=== PATIENT | male | born 1950 | race Caucasian/White ===

== ENCOUNTER → 2016-08-05 | Outpatient (CLI) | payer OTHER, BC ==
[~2016-08-05] MED LIST: ASPI325T4 PO; ATOR-14 PO; IMP/50 PO; INSDGI SC; LAMO1TAB75 PO; LISI10TA PO; LITH300T2 PO; LITH600C PO; METF-384 PO; TEMA15CA4 PO
== END | disposition home or self-care (01) ==
LOC: C.LABBFT 13:24
PROVIDERS: ATTEND Psychiatry & Neurology Psychiatry
DX: F31.9 Bipolar disorder, unspecified (principal)

== ENCOUNTER → 2016-10-12 | Outpatient (CLI) | payer OTHER, BC ==
[2016-10-12 17:54] LABS: BLOOD UREA NITROGEN 17 mg/dl (7-18); BUN/CREATININE RATIO 15.3 (10-20); CALCIUM 9.2 mg/dl (8.5-10.1); CARBON DIOXIDE 26 mmol/L (21-32); CHLORIDE 101 mmol/L (98-107); CHOLESTEROL 144 mg/dl (0-200); CHOLESTEROL/HDL RATIO 5.3; GLUCOSE 197 mg/dl (70-99); HDL CHOLESTEROL 27 mg/dl; POTASSIUM 4.1 mmol/L (3.5-5.1); SODIUM 137 mmol/L (136-145); TRIGLYCERIDES 409 mg/dl (0-150)
[2016-10-13 07:25] LABS: ESTIMATED AVERAGE GLUCOSE 163 mg/dl; HA1C FLAG Normal (Normal)
== END | disposition home or self-care (01) ==
LOC: C.LABPVFM 07:39
PROVIDERS: ATTEND Family Medicine
DX: E11.9 Type 2 diabetes mellitus without complications (principal); I10 Essential (primary) hypertension

== ENCOUNTER → 2017-01-21 | Outpatient (CLI) | payer OTHER, BC ==
[2017-01-21 18:08] LABS: BASO % 0.2 %; BASO ABS # 0.02 K/uL (0-0.2); COMPLETE YES; EOS % 1.2 %; HEMATOCRIT 48.7 % (42-52); IG% 0.2 %; LYMPH % 23.2 %; LYMPH ABS # 2.06 K/uL (1.2-3.4); MEAN CELL VOLUME 90.2 fL (80-100); MEAN CORPUSCULAR HEMOGLOBIN 30.2 pg (25-34); MEAN CORPUSCULAR HGB CONC 33.5 g/dl (32-36); MEAN PLATELET VOLUME 10.4 fL (7.4-10.4); NEUT % 66.2 %; PLATELET COUNT 174 K/uL (130-400); WHITE BLOOD COUNT 8.89 K/uL (4.8-10.8)
== END | disposition home or self-care (01) ==
LOC: C.LABPVFM 11:56
PROVIDERS: ATTEND Nurse Practitioner
DX: M10.9 Gout, unspecified (principal)

== ENCOUNTER → 2017-04-11 | Outpatient (CLI) | payer OTHER, BC ==
[2017-04-11 17:59] LABS: ALT/SGPT 35 U/L (12-78); AST/SGOT 16 U/L (15-37); BLOOD UREA NITROGEN 17 mg/dl (7-18); BUN/CREATININE RATIO 15.9 (10-20); CALCIUM 9.4 mg/dl (8.5-10.1); CARBON DIOXIDE 28 mmol/L (21-32); CHLORIDE 102 mmol/L (98-107); GLUCOSE 192 mg/dl (70-99); POTASSIUM 4.4 mmol/L (3.5-5.1); SODIUM 138 mmol/L (136-145); URIC ACID 7.3 mg/dl (2.6-7.2)
[2017-04-11 18:01] LABS: ALB/GLOB RATIO 1.2 (0.9-2); ALKALINE PHOSPHATASE 101 U/L (45-117)
== END | disposition home or self-care (01) ==
LOC: C.LABPVFM 16:01
PROVIDERS: ATTEND Family Medicine
DX: M10.9 Gout, unspecified (principal); E11.9 Type 2 diabetes mellitus without complications

== ENCOUNTER → 2017-04-28 | Outpatient (CLI) | payer OTHER, BC ==
[2017-04-28 18:03] LABS: CREATININE 1.03 mg/dl (0.60-1.40)
== END | disposition home or self-care (01) ==
LOC: C.LABBFT 15:29
PROVIDERS: ATTEND Psychiatry & Neurology Psychiatry
DX: F31.76 Bipolar disorder, in full remission, most recent episode depressed (principal); Z79.899 Other long term (current) drug therapy

== ENCOUNTER → 2017-06-24 | Outpatient (CLI) | payer OTHER, BC ==
[2017-06-24 17:42] LABS: HEMATOCRIT 47.9 % (42-52); MEAN CELL VOLUME 91.1 fL (80-100); MEAN CORPUSCULAR HEMOGLOBIN 30.6 pg (25-34); MEAN CORPUSCULAR HGB CONC 33.6 g/dl (32-36); MEAN PLATELET VOLUME 10.4 fL (7.4-10.4); PLATELET COUNT 207 K/uL (130-400); RED BLOOD COUNT 5.26 M/uL (4.7-6.1); WHITE BLOOD COUNT 8.74 K/uL (4.8-10.8)
[2017-06-24 18:02] LABS: ALT/SGPT 39 U/L (12-78); AST/SGOT 21 U/L (15-37); BLOOD UREA NITROGEN 17 mg/dl (7-18); BUN/CREATININE RATIO 12.5 (10-20); CALCIUM 9.4 mg/dl (8.5-10.1); CARBON DIOXIDE 28 mmol/L (21-32); CHLORIDE 101 mmol/L (98-107); CREATININE 1.32 mg/dl (0.60-1.40); GLUCOSE 226 mg/dl (70-99); POTASSIUM 4.6 mmol/L (3.5-5.1); SODIUM 134 mmol/L (136-145); URIC ACID 6.7 mg/dl (2.6-7.2)
[2017-06-24 18:04] LABS: ALB/GLOB RATIO 1.2 (0.9-2); ALKALINE PHOSPHATASE 121 U/L (45-117)
== END | disposition home or self-care (01) ==
LOC: C.LABPVFM 13:56
PROVIDERS: ATTEND Family Medicine
DX: M10.9 Gout, unspecified (principal)

== ENCOUNTER → 2017-07-14 | Outpatient (CLI) | payer OTHER, BC ==
[~2017-07-14] MED LIST changes: +ALLO100T PO; +ASCO10003 PO; +ATEN50TA21 PO; +CIPR0.3S4 OPR; +CLON1TAB4 PO; +INSU1.2I INJ; +MISC1CAP65 PO; +MULT-1093 PO; +OMEG12006 PO; +TRAZ50TA35 PO
[2017-07-15 06:19] LABS: HEMOGLOBIN A1C 6.6 % (4.5-5.6)
== END | disposition home or self-care (01) ==
LOC: C.LABPVFM 15:25
PROVIDERS: ATTEND Family Medicine
DX: E11.9 Type 2 diabetes mellitus without complications (principal)

== ENCOUNTER 2017-08-09 14:00 | Emergency (ER) | payer OTHER, BC ==
[~2017-08-09] VITALS: Ht 193 cm; Wt 127.0 kg
[~2017-08-09 14:00] MED LIST changes: -ALLO100T PO; -ASCO10003 PO; -ATEN50TA21 PO; -CIPR0.3S4 OPR; -CLON1TAB4 PO; -INSU1.2I INJ; -MISC1CAP65 PO; -MULT-1093 PO; -OMEG12006 PO; -TRAZ50TA35 PO
[2017-08-09] MEDS ORDERED: SODIUM CHLORIDE 0.9% 1000ML 1,000 ML IV SCH (14:19)
[2017-08-09 14:31] VITALS: Ht 193 cm; Wt 127.0 kg
[2017-08-09 15:13] LABS: BASO % 0.4 %; BASO ABS # 0.03 K/uL (0-0.2); EOS % 0.6 %; EOS ABS # 0.05 K/uL (0-0.5); HEMATOCRIT 48.8 % (42-52); HEMOGLOBIN 16.7 g/dL (14.0-18.0); IG# 0.01 K/uL (0.00-0.02); MEAN CELL VOLUME 89.9 fL (80-100); MEAN CORPUSCULAR HEMOGLOBIN 30.8 pg (25-34); MEAN CORPUSCULAR HGB CONC 34.2 g/dl (32-36); MEAN PLATELET VOLUME 9.7 fL (7.4-10.4); MONO % 7.9 %; MONO ABS # 0.64 K/uL (0.11-0.59); NEUT ABS # 5.68 K/uL (1.4-6.5); PLATELET COUNT 188 K/uL (130-400); RED CELL DISTRIBUTION WIDTH CV 13.9 % (11.5-14.5); RED CELL DISTRIBUTION WIDTH SD 45.3 fL (36.4-46.3); WHITE BLOOD COUNT 8.11 K/uL (4.8-10.8)
[2017-08-09 15:26] LABS: PTT PATIENT 25.3 SECONDS (21.0-31.0)
[2017-08-09 15:31] LABS: BLOOD UREA NITROGEN 15 mg/dl (7-18); CALCIUM 9.8 mg/dl (8.5-10.1); CARBON DIOXIDE 26 mmol/L (21-32); CREATININE 1.06 mg/dl (0.60-1.40); GLUCOSE 170 mg/dl (70-99); POTASSIUM 4.4 mmol/L (3.5-5.1); SODIUM 135 mmol/L (136-145)
[2017-08-09] MEDS ORDERED: LITH300T2 PO ×2 (15:35)
[2017-08-09] MEDS ORDERED: CLON1TAB3 PO (15:35)
[2017-08-09] MEDS ORDERED: INSU1.2I INJ (15:35)
[2017-08-09] MEDS ORDERED: ATEN50TA21 PO (15:35)
[2017-08-09] MEDS ORDERED: ALLO100T PO (15:35)
[2017-08-09 15:36] VITALS: TEMP 37
[2017-08-09 15:36] LABS: CKMB 1.1 ng/ml (0.5-3.6)
[2017-08-09] MEDS ORDERED: MISC1CAP65 PO (15:53)
[2017-08-09] MEDS ORDERED: CIPR0.3S4 OPR (15:53)
[2017-08-09] MEDS ORDERED: TRAZ50TA35 PO (15:53)
[2017-08-09] MEDS ORDERED: MULT-1093 PO (15:53)
[2017-08-09] MEDS ORDERED: ASCO10003 PO (15:53)
[2017-08-09] MEDS ORDERED: OMEG12006 PO (15:53)
--- NOTE | 2017-08-09 16:05 | DIAGNOSTIC IMAGING REPORT ---
CT OF THE HEAD WITHOUT CONTRAST CLINICAL HISTORY: Stroke. Double vision. COMPARISON STUDY: No previous studies for comparison. CT DOSE: 788.63 mGycm TECHNIQUE: Helical axial images of the head were obtained without IV contrast. Automated exposure control was utilized for the study. A dose lowering technique was utilized adhering to the principles of ALARA. FINDINGS: No acute intracranial hemorrhage, midline shift or mass effect is present. Brain volume is normal for age. Basilar cisterns are patent. There are no extra-axial collections. Lake-white differentiation is maintained. There are no findings to suggest acute dural sinus thrombosis or acute territorial infarct. A few white matter hypodensities suggest small vessel disease or old lacunar infarcts. There are no significant calvarial abnormalities. Visualized portions of the sinuses and mastoid air cells are clear. IMPRESSION: No acute intracranial findings. Electronically signed by: Demarcus Donis M.D. 08/09/2017 4:04 PM Dictated Date/Time: 08/09/2017 4:01 PM
[2017-08-09] MEDS ORDERED: LORAZEPAM 0.5 MG TAB ONE (17:21)
--- NOTE | 2017-08-09 18:22 | DIAGNOSTIC IMAGING REPORT ---
MRI OF THE BRAIN WITHOUT IV CONTRAST CLINICAL HISTORY: 3rd cranial nerve palsy. COMPARISON STUDY: CT of the brain dated 08/09/2017. TECHNIQUE: MRI of the brain was performed utilizing various T1 and T2-weighted sequences in the axial, sagittal, and coronal planes. IV contrast was not administered for this examination. FINDINGS: Brain parenchyma: There is minimal periventricular microangiopathic disease. A prominent perivascular space versus chronic lacunar infarct is noted in the right basal ganglia. There is no hemorrhage or mass effect. There is no restricted diffusion to suggest acute ischemia. Lake-white matter differentiation is preserved. No extra-axial fluid collection is seen. The cerebellar tonsils are normal in configuration. Ventricles, sulci, and cisterns: Normal in configuration. Pituitary and sella: Unremarkable. Intracranial vasculature: Normal flow voids are maintained at the skull base. Orbits: The bony orbits are grossly intact. Orbital contents are normal in appearance. Sinuses and mastoids: Clear. Calvarium: Unremarkable. Cervical cord: Partially visualized cervical spinal cord is normal in morphology and signal intensity. IMPRESSION: No acute intracranial abnormality. Electronically signed by: Misha Russo M.D. 08/09/2017 6:21 PM Dictated Date/Time: 08/09/2017 6:19 PM
--- NOTE | 2017-08-09 18:25 | DIAGNOSTIC IMAGING REPORT ---
MR ANGIOGRAM OF THE BRAIN CLINICAL HISTORY: 3rd cranial nerve palsy. COMPARISON STUDY: MRI of the brain performed concurrently on 08/09/2017. TECHNIQUE: 3-D [id number] MR angiography of the intracranial circulation is performed. 3-D tumble views are created and assessed. IV contrast was not administered for this examination. FINDINGS: The [place] is developmentally complete. The internal carotid arteries are widely patent bilaterally, as are the anterior and middle cerebral arteries. The vertebrobasilar system and posterior cerebral arteries are widely patent. The vertebral arteries are codominant. There is no aneurysm, high-grade stenosis, or focal vessel cutoff seen throughout the intracranial circulation. The brain parenchyma is normal as visualized. IMPRESSION: Unremarkable MR angiogram of the brain. Electronically signed by: Misha Russo M.D. 08/09/2017 6:23 PM Dictated Date/Time: 08/09/2017 6:21 PM
[2017-08-09 20:03] VITALS: BP 127/79; PULSE 101; O2SAT 95
--- NOTE | 2017-08-09 20:57 | EMERGENCY ROOM VISIT NOTE ---
History Report prepared by Riik: Halle Wright Under the Supervision of: Dr. Arik Randle D.O. First contact with patient: 14:08 Chief Complaint: NEURO SYMPTOMS Stated Complaint: DOUBLE VISION History of Present Illness The patient is a 67 year old male who presents to the Emergency Room with complaints of constant neurological symptoms since yesterday morning. The patient woke up yesterday morning with pain in his right eye and some greenish/ yellow discharge from the eye. He saw Dr. Phan, his airport sales agent, yesterday for his symptoms. She diagnosed him with conjunctivitis and started the patient on drops. He states that the drops have alleviated some of his discomfort and drainage. Last night he did notice that his right eyelid appeared to be drooping slightly and this has persisted. The patient woke up this morning with double vision. He states that he is seeing things one on top of another. He saw Dr. Phan again who diagnosed a partial 3rd nerve paresis, pupil sparing. She discussed the case with his PCP and advised the patient to come to the ED for further evaluation. The patient states that his visual symptoms improve if he closes one eye. He is currently wearing an eye patch and that is helping. Pt denies any current headache, fevers, loss of vision, numbness, weakness, trouble drinking or swallowing, chest pain, shortness of breath, nausea, vomiting, diarrhea, pain with urination, and melena. Source of History: patient, treating provider Onset: yesterday morning Position: other (global) Quality: other (neurological) Timing: constant Modifying Factors (Relieving): other (eye patch/closing one eye) Associated Symptoms: No fevers, No headache, No chest pain, No SOB, No nausea, No vomiting, No melena, No diarrhea, No urinary symptoms, No weakness, No numbness Note: Pt reports double vision. Pt denies any loss of vision. Review of Systems See HPI for pertinent positives & negatives. A total of 10 systems reviewed and were otherwise negative. Past Medical & Surgical Medical Problems: (1) DDD (degenerative disc disease), cervical (2) Diabetes mellitus (3) Hypertension (4) Stenosis of cervical spine Family History Cancer Diabetes mellitus Hypertension Social History Smoking Status: Never Smoker Smokeless Tobacco Use: No Alcohol Use: occasionally Drug Use: none Marital Status: Housing Status: lives with family Occupation Status: employed Current/Historical Medications Scheduled Allopurinol (Zyloprim), 1 TAB PO DAILY Ascorbic Acid (Vitamin C), 1 TAB PO DAILY Aspirin (Aspirin), 325 MG PO BID Atenolol & Chlorthalidone (Tenoretic 50MG/25MG), 1 TAB PO DAILY Atorvastatin (Lipitor), 10 MG PO HS Ciprofloxacin Ophth Soln (Ciprofloxacin Ophth Soln), 2 DROPS OPR QID Clonazepam (Klonopin), 1 MG PO QPM Imipramine (Tofranil), 150 MG PO QAM Insulin Glargine (Toujeo Solostar), 70 UNITS INJ DAILY Lisinopril (Prinivil), 10 MG PO DAILY Catano Carbonate (Catano Carbonate), 600 MG PO QAM Catano Carbonate ([place] Carbonate), 300 MG PO QPM Metformin Hcl (Glucophage), 1,000 MG PO BID Misc Natural Products (Urinozinc), 2 TABS PO QAM Multiple Vitamins W/ Minerals (Centrum Silver 50+Men), 1 TAB PO DAILY Chandler-3 Fatty Acids (Chandler 3), 1,200 MG PO DAILY Trazodone Hcl (Trazodone), 50 MG PO QPM Allergies Coded Allergies: Hydromorphone (Verified Allergy, Unknown, PT. UNAWARE OF BEING ALLERGIC TO THIS MEDICATION, 08/09/17) Penicillins (Verified Allergy, Unknown, RASH, 08/09/17) Physical Exam Vital Signs Date Time Temp Pulse Resp B/P (MAP) Pulse Ox O2 Delivery O2 Flow Rate FiO2 08/09/17 20:03 101 18 127/79 95 Room Air 08/09/17 19:07 80 18 136/79 98 Room Air 08/09/17 17:02 100 20 171/83 95 Room Air 08/09/17 15:36 37.0 87 20 127/81 94 Room Air 08/09/17 14:52 Room Air Physical Exam GENERAL: Sitting up in bed, alert, well appearing, well nourished, no distress, non-toxic EYE EXAM: Normal conjunctiva, right eye slightly deviated to the right and inferiorly with ptosis of eyelid, PERRL, extraocular muscles are otherwise intact although has a slight deficit with medial gaze of right eye. OROPHARYNX: no exudate, no erythema, lips, buccal mucosa, and tongue normal and mucous membranes are moist NECK: supple, no nuchal rigidity, no adenopathy, non-tender LUNGS: Clear to auscultation. Normal chest wall mechanics HEART: no murmurs, S1 normal and S2 normal ABDOMEN: abdomen soft, non-tender, normo-active bowel sounds, no masses, no rebound or guarding. BACK: Back is symmetrical on inspection and there is no deformity, no midline tenderness, no CVA tenderness. SKIN: no rashes and no bruising UPPER EXTREMITIES: upper extremities are grossly normal. LOWER EXTREMITIES: No pitting edema. NEURO EXAM: Normal sensorium, cranial nerves 2, 4-12 are intact, normal speech, no gross weakness of arms, no weakness of legs. No drift. Finger to nose intact, only possible with one eye closed. Gross sensation intact. Medical Decision & Procedures ER Provider Diagnostic Interpretation: Radiology results as stated below per my review and the radiologist's interpretation: CT OF THE HEAD WITHOUT CONTRAST CLINICAL HISTORY: Stroke. Double vision. COMPARISON STUDY: No previous studies for comparison. CT DOSE: 788.63 mGycm TECHNIQUE: Helical axial images of the head were obtained without IV contrast. Automated exposure control was utilized for the study. A dose lowering technique was utilized adhering to the principles of ALARA. FINDINGS: No acute intracranial hemorrhage, midline shift or mass effect is present. Brain volume is normal for age. Basilar cisterns are patent. There are no extra-axial collections. Lake-white differentiation is maintained. There are no findings to suggest acute dural sinus thrombosis or acute territorial infarct. A few white matter hypodensities suggest small vessel disease or old lacunar infarcts. There are no significant calvarial abnormalities. Visualized portions of the sinuses and mastoid air cells are clear. IMPRESSION: No acute intracranial findings. Electronically signed by: Demarcus Donis M.D. 08/09/2017 4:04 PM Dictated Date/Time: 08/09/2017 4:01 PM MR ANGIOGRAM OF THE BRAIN CLINICAL HISTORY: 3rd cranial nerve palsy. COMPARISON STUDY: MRI of the brain performed concurrently on 08/09/2017. TECHNIQUE: 3-D [id number] MR angiography of the intracranial circulation is performed. 3-D tumble views are created and assessed. IV contrast was not administered for this examination. FINDINGS: The [place] is developmentally complete. The internal carotid arteries are widely patent bilaterally, as are the anterior and middle cerebral arteries. The vertebrobasilar system and posterior cerebral arteries are widely patent. The vertebral arteries are codominant. There is no aneurysm, high-grade stenosis, or focal vessel cutoff seen throughout the intracranial circulation. The brain parenchyma is normal as visualized. IMPRESSION: Unremarkable MR angiogram of the brain. Electronically signed by: Misha Russo M.D. 08/09/2017 6:23 PM Dictated Date/Time: 08/09/2017 6:21 PM MRI OF THE BRAIN WITHOUT IV CONTRAST CLINICAL HISTORY: 3rd cranial nerve palsy. COMPARISON STUDY: CT of the brain dated 08/09/2017. TECHNIQUE: MRI of the brain was performed utilizing various T1 and T2-weighted sequences in the axial, sagittal, and coronal planes. IV contrast was not administered for this examination. FINDINGS: Brain parenchyma: There is minimal periventricular microangiopathic disease. A prominent perivascular space versus chronic lacunar infarct is noted in the right basal ganglia. There is no hemorrhage or mass effect. There is no restricted diffusion to suggest acute ischemia. Lake-white matter differentiation is preserved. No extra-axial fluid collection is seen. The cerebellar tonsils are normal in configuration. Ventricles, sulci, and cisterns: Normal in configuration. Pituitary and sella: Unremarkable. Intracranial vasculature: Normal flow voids are maintained at the skull base. Orbits: The bony orbits are grossly intact. Orbital contents are normal in appearance. Sinuses and mastoids: Clear. Calvarium: Unremarkable. Cervical cord: Partially visualized cervical spinal cord is normal in morphology and signal intensity. IMPRESSION: No acute intracranial abnormality. Electronically signed by: Misha Russo M.D. 08/09/2017 6:21 PM Dictated Date/Time: 08/09/2017 6:19 PM Laboratory Results 08/09/17 14:55 Red Blood Count 5.43, Mean Corpuscular Volume 89.9, Mean Corpuscular Hemoglobin 30.8, Mean Corpuscular Hemoglobin Concent 34.2, Mean Platelet Volume 9.7, Neutrophils (%) (Auto) 70.0, Lymphocytes (%) (Auto) 21.0, Monocytes (%) (Auto) 7.9, Eosinophils (%) (Auto) 0.6, Basophils (%) (Auto) 0.4, Neutrophils # (Auto) 5.68, Lymphocytes # (Auto) 1.70, Monocytes # (Auto) 0.64, Eosinophils # (Auto) 0.05, Basophils # (Auto) 0.03 08/09/17 14:55 Test 08/09/17 14:31 08/09/17 14:55 Bedside Prothrombin Time INR 1.0 (0.9-1.1) White Blood Count 8.11 K/uL (4.8-10.8) Red Blood Count 5.43 M/uL (4.7-6.1) Hemoglobin 16.7 g/dL (14.0-18.0) Hematocrit 48.8 % (42-52) Mean Corpuscular Volume 89.9 fL (80-100) Mean Corpuscular Hemoglobin 30.8 pg (25-34) Mean Corpuscular Hemoglobin Concent 34.2 g/dl (32-36) Platelet Count 188 K/uL (130-400) Mean Platelet Volume 9.7 fL (7.4-10.4) Neutrophils (%) (Auto) 70.0 % Lymphocytes (%) (Auto) 21.0 % Monocytes (%) (Auto) 7.9 % Eosinophils (%) (Auto) 0.6 % Basophils (%) (Auto) 0.4 % Neutrophils # (Auto) 5.68 K/uL (1.4-6.5) Lymphocytes # (Auto) 1.70 K/uL (1.2-3.4) Monocytes # (Auto) 0.64 K/uL (0.11-0.59) Eosinophils # (Auto) 0.05 K/uL (0-0.5) Basophils # (Auto) 0.03 K/uL (0-0.2) RDW Standard Deviation 45.3 fL (36.4-46.3) RDW Coefficient of Variation 13.9 % (11.5-14.5) Immature Granulocyte % (Auto) 0.1 % Immature Granulocyte # (Auto) 0.01 K/uL (0.00-0.02) Prothrombin Time 10.3 SECONDS (9.0-12.0) Prothromb Time International Ratio 1.0 (0.9-1.1) Activated Partial Thromboplast Time 25.3 SECONDS (21.0-31.0) Partial Thromboplastin Ratio 1.0 Anion Gap 8.0 mmol/L (3-11) Est Creatinine Clear Calc Drug Dose 99.7 ml/min Estimated GFR () 84.3 Estimated GFR (Non- 72.8 BUN/Creatinine Ratio 14.0 (10-20) Calcium Level 9.8 mg/dl (8.5-10.1) Magnesium Level 2.0 mg/dl (1.8-2.4) Total Creatine Kinase 102 U/L (39-308) Creatine Kinase MB 1.1 ng/ml (0.5-3.6) Creatine Kinase MB Ratio 1.1 (0-3.0) Troponin I < 0.015 ng/ml (0-0.045) Laboratory results per my review. Medications Administered Medications (Trade) Dose Ordered Sig/Hitesh Route Start Time Stop Time Status Last Admin Dose Admin Sodium Chloride 1,000 ml @ 50 mls/hr Q20H IV 08/09/17 14:19 09/08/17 14:18 08/09/17 14:15 50 MLS/HR Lorazepam (Ativan Tab) 0.5 mg STK-MED ONCE .ROUTE 08/09/17 17:21 08/09/17 17:22 DC 08/09/17 17:22 0.5 MG ECG Indication: other Rate (beats per minute): 92 Rhythm: normal sinus Findings: no ectopy, other (normal axis) Change: Patient's electrocardiogram interpreted by me. ED Course ED COURSE: Vital signs were reviewed and showed normal vitals The patients medical record was reviewed The above diagnostic studies were performed and reviewed. ED treatments and interventions as stated above. 1408: The patient was evaluated in room B9. A complete history and physical examination was performed. 1419: NSS 1000 ml @ 50 mls/hr IV 1508: I spoke with Dr. Phan, the patient's airport sales agent. We discussed the case. She states that his slit lamp exam was normal and his intraocular pressures were WNL. 1648: I discussed the patient's case with Dr. Bartholomew of neurology. She recommends MRI of brain and MRA. 1651: I updated the patient and he is in agreement with the treatment plan. 1855: I discussed the patient's results with Dr. Bartholomew and she will follow- up with the patient as an outpatient. 1909: Upon reevaluation, the patient is feeling better and resting comfortably. I discussed my findings with the patient and he understands and agrees with the treatment plan. Based on the patients age, coexisting illnesses, exam and lab findings the decision to treat as an outpatient was made. The patient remained stable while under my care. The patient appeared well at the time of discharge. Medical Decision Differential Diagnosis includes but is not limited to ischemic Stroke, hemorrhagic stroke, bells palsy, mass, neoplasm, migraine headache, seizure, subarachnoid hemorrhage, TIA, and transient global amnesia. Patient is a 67-year-old male that was referred in by his eye doctor for a third cranial nerve palsy. He was evaluated yesterday and had conjunctivitis. He did complete eye exam done again today and was referred in for the third nerve palsy. I did not perform evaluation patient has reported by . his intraocular pressures and slit lamp was completely benign. Discussed with neurology following a negative CT head and performed an MRI and MRA of the brain. This was negative. Rediscussed with them they agreed with having patient follow up with her PCP, ophthalmology and them as an outpatient. Do favor this is likely related to a diabetic neuropathy. Patient has no other complaint at this time. He is otherwise completely neurologically intact. He was discharged follow-up as an outpatient. Discussed with Pt concerning signs and symptoms to watch out for. Pt was instructed to follow up with their PCP and discussed with the patient their option to return to the ED at anytime for persistent or worsening symptoms. The appropriate anticipatory guidance and out- patient management, including indications for return to the emergency department , were explained at length to the patient and understood. Medication Reconcilliation Current Medication List: was personally reviewed by me Blood Pressure Screening Patient's blood pressure: Normal blood pressure Consults Time Called: 1504 Consulting Physician: Dr. Phan Returned Call: [address] Phan, the patient's airport sales agent. We discussed the case. She states that his slit lamp exam was normal and his intraocular pressures were WNL. Additional Consults: Time Called: 1644 Consulted Physician: Dr. Bartholomew Returned Call: 1648 Additional Comments: I discussed the patient's case with Dr. Bartholomew of neurology. She recommends MRI of brain and MRA. Time Called: 185 Consulted Physician: Dr. Bartholomew Returned Call: [phone] Additional Comments: I discussed the patient's results with Dr. Bartholomew and she will follow-up with the patient as an outpatient. Impression Primary Impression: Cranial nerve III palsy, partial Additional Impression: Diabetes mellitus Scribe Attestation The scribe's documentation has been prepared under my direction and personally reviewed by me in its entirety. I confirm that the note above accurately reflects all work, treatment, procedures, and medical decision making performed by me. Departure Information Dispostion Home / Self-Care Referrals Arlyn Hall M.D. Schaefer, Kathleen A., M.D. Forms HOME CARE DOCUMENTATION FORM, IMPORTANT VISIT INFORMATION, WORK / SCHOOL INSTRUCTIONS Patient Instructions ED Double Vision, My [facility] Additional Instructions Please follow up with your primary care doctor with in the next 24 hours. Any worsening of your symptoms, please return to the ED immediately. This includes any fevers greater than 100.4, worsening pain, chest pain, shortness breath, persistent nausea, vomiting, unable to eat or drink, weakness or numbness in your arms or legs, facial droop, or any other concerning signs or symptoms from your standpoint. Please note drive until you're cleared by your eye doctor. Please follow up with neurology as soon as possible. Problem Qualifiers Primary Impression: Cranial nerve III palsy, partial Laterality: right Qualified Codes: H49.01 - Third [oculomotor] nerve palsy, right eye Additional Impression: Diabetes mellitus Diabetes mellitus type: other specified (including BRIANA)
== END 2017-08-09 20:05 | disposition home or self-care (01) ==
LOC: C.EDB 14:02
DX: H49.01 Third [oculomotor] nerve palsy, right eye (principal); E11.9 Type 2 diabetes mellitus without complications; I10 Essential (primary) hypertension; Z79.82 Long term (current) use of aspirin; Z79.4 Long term (current) use of insulin; Z79.84 Long term (current) use of oral hypoglycemic drugs; Z88.0 Allergy status to penicillin; Z88.6 Allergy status to analgesic agent; Z83.3 Family history of diabetes mellitus; Z82.49 Family history of ischemic heart disease and other diseases of the circulatory system

== ENCOUNTER → 2017-09-06 | Outpatient (CLI) | payer OTHER, BC ==
[~2017-09-06] MED LIST changes: +ALLO100T PO; +ASCO10003 PO; +ATEN50TA21 PO; +CIPR0.3S4 OPR; +CLON1TAB3 PO; -INSDGI SC; +INSU1.2I INJ; -LAMO1TAB75 PO; -LITH600C PO; +MISC1CAP65 PO; +MULT-1093 PO; +OMEG12006 PO; -TEMA15CA4 PO; +TRAZ50TA35 PO
[2017-09-06 13:20] LABS: CREATININE 1.19 mg/dl (0.60-1.40)
== END | disposition home or self-care (01) ==
LOC: C.LABBFT 07:25
PROVIDERS: ATTEND Psychiatry & Neurology Psychiatry
DX: F31.76 Bipolar disorder, in full remission, most recent episode depressed (principal)

== ENCOUNTER → 2017-09-09 | Outpatient (CLI) | payer OTHER, BC | END | disposition home or self-care (01) | LOC: C.LABBFT 07:15 | PROVIDERS: ATTEND Psychiatry & Neurology Psychiatry | DX: F31.76 Bipolar disorder, in full remission, most recent episode depressed (principal); Z79.899 Other long term (current) drug therapy ==

== ENCOUNTER → 2017-10-07 | Outpatient (CLI) | payer OTHER, BC ==
--- NOTE | 2017-10-07 09:15 | DIAGNOSTIC IMAGING REPORT ---
CHEST 2 VIEWS ROUTINE CLINICAL HISTORY: ACUTE BRONCHITIS, UNSPECIFIED ORGANISM COMPARISON STUDY: 05/30/2013 FINDINGS: The cardiac and mediastinal contours are normal. There is no evidence of focal pulmonary consolidation. There is no evidence of failure. No pleural effusions are visualized.[ There is an old distal left clavicular fracture. IMPRESSION: No active disease in the chest. Electronically signed by: Riley Faustin M.D. 10/07/2017 9:14 AM Dictated Date/Time: 10/07/2017 9:13 AM
== END | disposition home or self-care (01) ==
LOC: C.RADPV 08:54
PROVIDERS: ATTEND Family Medicine
DX: J20.9 Acute bronchitis, unspecified (principal)

== ENCOUNTER → 2017-11-10 | Outpatient (CLI) | payer OTHER, BC ==
[2017-11-10 13:36] LABS: HEMOGLOBIN A1C 5.7 % (4.5-5.6)
[2017-11-10 13:47] LABS: ALBUMIN 4.4 gm/dl (3.4-5.0); ALT/SGPT 42 U/L (12-78); AST/SGOT 22 U/L (15-37); BLOOD UREA NITROGEN 17 mg/dl (7-18); CALCIUM 9.5 mg/dl (8.5-10.1); CARBON DIOXIDE 26 mmol/L (21-32); CHOLESTEROL 85 mg/dl (0-200); GLUCOSE 112 mg/dl (70-99); POTASSIUM 4.5 mmol/L (3.5-5.1); SODIUM 135 mmol/L (136-145)
[2017-11-10 13:50] LABS: ALKALINE PHOSPHATASE 95 U/L (45-117); LDL CHOLESTEROL CALCULATED 31 mg/dl; TOTAL PROTEIN 7.4 gm/dl (6.4-8.2)
[2017-11-10 13:58] LABS: CREATININE RANDOM URINE 80.5 mg/dl
== END | disposition home or self-care (01) ==
LOC: C.LABPVFM 10:36
PROVIDERS: ATTEND Family Medicine
DX: Z00.00 Encounter for general adult medical examination without abnormal findings (principal); E11.9 Type 2 diabetes mellitus without complications; E78.5 Hyperlipidemia, unspecified

== ENCOUNTER → 2018-02-24 | Outpatient (CLI) | payer OTHER, BC ==
[~2018-02-24] MED LIST changes: -CLON1TAB3 PO; +CLON1TAB4 PO
[2018-02-24 12:51] LABS: CREATININE 1.11 mg/dl (0.60-1.40)
== END | disposition home or self-care (01) ==
LOC: C.LABBFT 09:20
PROVIDERS: ATTEND Psychiatry & Neurology Psychiatry
DX: F31.76 Bipolar disorder, in full remission, most recent episode depressed (principal)

== ENCOUNTER 2020-09-30 04:45 | Inpatient (IN) ==
[2020-09-30] MEDS ORDERED: SODIUM CHLORIDE 0.9% 1000ML 1,000 ML IV ONE ×3 (04:59→05:40)
[2020-09-30] MEDS ORDERED: ACETAMINOPHEN 1,000 MG/100 ML VIAL IV STA (04:59)
--- NOTE | 2020-09-30 05:06 | Emergency Department Note ---
Impression & Plan Sepsis, Acute UTI (urinary tract infection), Lactic acidosis ED Provider Note Name: STEFAN BROOKS Age: 70 Sex: M Arrives Via: Family Vehicle Informant: Patient, ED Provider: Mahamed Acosta MD Chief Complaint: Weakness Impression: Sepsis Acute UTI Lactic Acidosis Medical Decision Makin yr old male with history DMII, HTN, DDD, HLD arrives due to weakness and fevers at home. Ill appearing, tachycardic and mildly hypoxic. Sepsis work up initiated on arrival and blood cultures send. 30ml/kg bolus given, empiric cefepime/vanco, and patient improving rapidly. HR coming down some though still a bit tachy. Abdomen soft, lungs clear and cxr unremarkable. He does have a bit of hypoxia which may be septic related but without respiratory symptoms seems unlikely pneumonia given the Urine is consistent with infection. Lactate elevated consistent with sepsis. Patient tolerating large IV fluids well. He is thinking more clearly and notes he is much improved appearing. He did have fall without injury prior to arrival and without head injury. As no headache, neuro deficits and no blood thinner use I do not feel that neuro imaging indicated at this time. Hospitalist consulted for further management. Prior Medical Record and Triage/Nursing Notes reviewed by Me Additional history obtained from chart Differentials:Infection, dehydration, metabolic abnormality, hypo/hyperglycemia, electrolyte disturbance, anemia, hypoxia, cardiac sources, intracerebral event, toxicologic, neurologic, as well as other pathologies. Vital Signs: reviewed and remarkable for tachy, hypoxia Interventions: saline lock, nss bolus 30ml/kg IV, tylenol iv, cefepime iv, vanco iv Labs:Reviewed and remarkable for elevated lactate, wbc elevation Imaging:X ray results are stated below per my interpretation: Chest: 1 view: No infiltrate, no effusion, normal cardiac border. EKG:Per My Interpretation: Indication Sepsis: Sinus tach 131 bpm, qtc 428. No Ectopy. No Ischemia. No previous for comparison. Cardiac/Tele Monitoring: Cardiac Monitoring: An Order was placed for continuous cardiac monitoring. The monitor shows a rate of 130 with a sinus tachy rhythm. Consults: [place] Hospitalist Plan: Disposition:Hospitalization. Referred to: PCP Condition: Fair History of Present Illness:70 yr old male arrives for evaluation of weakness. Patient notes increasing fatigue, exhaustion and weakness throughout day yesterday. Associated with low grade fevers, mild nausea, lack of appetite and increasing urinary frequency. Notes feeling like he has to urinate constantly for the last few hours. noted he was so weak he collapsed slowly to floor by nightstand at which time she brought him to ED. He did not hit head nor injury himself during this fall. She notes his blood sugars were in the 190s this evening which is high for him. He used Tylenol 6 hours ago with mild improvement in symptoms. He notes exertion makes worse and laying in bed makes better. Current with mild headache though denies neuro deficits. He has no abdominal pain, back pain, leg swelling, rashes, chest pain, shob, syncope, nor other symptoms. No history of sepsis. Received both Covid Vaccinations > 2 weeks ago now. ROS: See above HPI for pertinent positives & negatives. A total of 10 systems reviewed and were otherwise negative. Past Medical History:DMII, HTN, DDD, HLD Past Surgical History:Cervical surgery Family History:See Below Social History:Lives with , semi-retired, no etoh/tobacco/drugs Home Medications:See Below Allergies:Dilaudid, PNC, Amox, Oxycodone Vitals:Blood Pressure: 157/80, Pulse 137, RR 22, T 37.4C, O2 92% on RA Physical Exam: GENERAL: Patient is ill appearing and in moderate distress. Dehydrated appearing and unwell. EYES: No scleral icterus, unremarkable pupils. ENT: Mucous membranes dry, no nasal congestion. NECK: No masses appreciated, nomeningismus, trachea is midline. RESPIRATORY: No dyspnea. Clear to auscultation and equal bilaterally. No wheeze, no rhonchi. CARDIOVASCULAR: Tachy.No murmurs, rubs, gallops appreciated. GASTROINTESTINAL: Abdomen soft, non-tender, no peritonitis.Bowel sounds positive.No masses appreciated. BACK: No midline tenderness, no CVA tenderness EXTREMITIES: Normal motion all extremities, no cyanosis, no edema. NEUROLOGIC: Tremulous, Alert and oriented, no acute motor or sensory deficits, no focal weakness, cranial nerves grossly intact. SKIN: No rash, no jaundice, no diaphoresis. PSYCH: Appropriate GCS: 15 ED Course: Times/Reassessments: Multiple evaluations, patient vastly improved with fluid resus, comfortable, breathing in no distress. Critical Care: I have personally spent 30 minutes of critical care time in the direct management of this patient. Acute Sepsis with lactic acidosis secondary to UTI. This was a life/limb threatening event. This 30 minutes is in excess of all separately billable procedures. Mahamed Acosta MD Past Med/Surg History Medical History (Updated 09/30/20 @ 07:19 by Evgeny Vick MD) DDD (degenerative disc disease), cervical (06/05/13) Diabetes mellitus Hyperlipidemia Hypertension Stenosis of cervical spine (06/05/13) Surgical History Hx of neck surgery Family History Other Breast cancer Colorectal cancer Denies family history of Ovarian cancer Prostate cancer Myocardial infarction Social History Smoking Status: Never smoker Hx Alcohol Use: No Hx Substance Use: No Preferred Language: Iraqi marital status: Current Living Situation: Spouse current occupational status: employed Feels Safe at Home: Yes caffeine: No Dental Care, Regularly: Yes Physical Activity Frequency: 5-6 Times per Week Seatbelt Use: always Sunscreen Use: No Allergies Allergies Allergy/AdvReac Type Severity Reaction Status Date / Time hydromorphone Allergy Unknown PT. Verified 05/30/20 12:53 UNAWARE OF BEING ALLERGIC TO THIS MEDICATION Penicillins Allergy Unknown RASH Verified 05/30/20 12:53 amoxicillin Allergy Verified 05/30/20 12:53 oxycodone Allergy Verified 05/30/20 12:53 Home Meds Home Medications Medication Instructions Recorded Confirmed lancets 30 gauge #25 ea 04/02/19 05/30/20 multivitamin 1 tab PO DAILY 04/02/19 09/30/20 aspirin 325 mg tablet,delayed 325 mg PO BID tab 04/03/19 09/30/20 release omega-3 acid ethyl esters 1 gram 1 cap PO BID cap 04/03/19 09/30/20 capsule trazodone 50 mg tablet 75 mg PO HS tab 04/04/19 09/30/20 clonazepam 1.5 mg PO HS PRN 09/30/20 09/30/20 lithium carbonate See Rx Instructions .ROUTE .COMPLEX 09/30/20 09/30/20 Previous Rx's Medication Instructions Recorded allopurinol 100 mg tablet 100 mg PO DAILY #90 tab 12/04/19 atenolol 50 mg-chlorthalidone 25 1 tab PO DAILY #90 tab 12/04/19 mg tablet atorvastatin 10 mg tablet 10 mg PO DAILY #90 tab 12/04/19 blood sugar diagnostic #10 ea 12/04/19 lancets 33 gauge #100 ea 12/04/19 ipratropium bromide 21 mcg (0.03 2 spray INTNAS TID #30 ml 02/26/20 %) nasal spray insulin glargine 100 unit/mL (3 48 unit SUBCUT DAILY #3 ml 02/28/20 mL) subcutaneous pen metformin 1,000 mg tablet 1,000 mg PO BID #180 tab 03/20/20 sildenafil 50 mg tablet 50 mg PO DAILY PRN #30 tab 04/18/20 lisinopril 10 mg tablet 10 mg PO DAILY #90 tab 06/26/20 pen needle, diabetic 31 gauge x #30 ea 07/30/20 5" liraglutide 0.6 mg/0.1 mL (18 mg/3 See Rx Instructions .ROUTE 09/18/20 mL) subcutaneous pen injector .COMPLEX #9 syringe Results & Data (ED) Vital Signs Vital Signs - 24 hr 09/30/20 04:46 09/30/20 05:20 09/30/20 05:27 Temperature 37.4 C Temperature Source Oral Pulse Rate 137 H 123 H 117 H Pulse Rate from SpO2 Sensor 123 H 117 H Respiratory Rate 22 22 24 Respiratory Effort / Characteristics Non-Labored Blood Pressure 157/80 H 178/141 H 137/67 Blood Pressure Mean 105 153 90 Blood Pressure Position Sitting Pulse Oximetry 99 96 93 Oxygen Delivery Method Room Air Room Air Sepsis Recent Fever Within 48 Hours Yes Sepsis New/Unexplained Change in Mental Status N/A Sepsis Action Taken by Nursing No Action Required 09/30/20 05:30 09/30/20 05:45 09/30/20 06:00 Temperature Temperature Source Pulse Rate 118 H 117 H 113 H Pulse Rate from SpO2 Sensor 118 H 117 H 113 H Respiratory Rate 15 24 25 H Respiratory Effort / Characteristics Blood Pressure 139/68 136/70 122/61 Blood Pressure Mean 91 92 81 Blood Pressure Position Pulse Oximetry 99 90 92 Oxygen Delivery Method Sepsis Recent Fever Within 48 Hours Sepsis New/Unexplained Change in Mental Status Sepsis Action Taken by Nursing 09/30/20 06:15 09/30/20 06:30 09/30/20 06:45 Temperature Temperature Source Pulse Rate 112 H 111 H 108 H Pulse Rate from SpO2 Sensor 112 H 111 H 108 H Respiratory Rate 24 27 H 24 Respiratory Effort / Characteristics Blood Pressure 134/65 125/67 107/54 L Blood Pressure Mean 88 86 71 Blood Pressure Position Pulse Oximetry 95 95 94 Oxygen Delivery Method Sepsis Recent Fever Within 48 Hours Sepsis New/Unexplained Change in Mental Status Sepsis Action Taken by Nursing Laboratory Data Result diagrams: 09/30/20 05:00 09/30/20 05:00 Lab Results 09/30/20 09/30/20 09/30/20 Range/Units 04:58 05:00 05:00 WBC (4.8-10.8) K/uL RBC (4.7-6.1) M/uL Hgb (14.0-18.0) g/dL Hct (42-52) % MCV (80-100) fL MCH (25-34) pg MCHC (32-36) g/dL RDW Std Deviation (36.4-46.3) fL RDW Coeff of Machelle (11.5-14.5) % Plt Count (130-400) K/uL MPV (7.4-10.4) fL Immature Gran % (Auto) % Neut % (Auto) % Lymph % (Auto) % Coffee % (Auto) % Eos % (Auto) % Baso % (Auto) % Neut # (Auto) (1.4-6.5) K/uL Lymph # (Auto) (1.2-3.4) K/uL Coffee # (Auto) (0.11-0.59) K/uL Eos # (Auto) (0-0.5) K/uL Baso # (Auto) (0-0.2) K/uL Immature Gran # (Auto) (0.00-0.02) K/uL PT (9.0-12.0) Seconds INR (0.9-1.1) Sodium (136-145) mmol/L Potassium (3.5-5.1) mmol/L Chloride (98-107) mmol/L Carbon Dioxide (21-32) mmol/L Anion Gap (3-11) BUN (7-18) mg/dl Creatinine (0.6-1.4) mg/dl Est Cr Clr Drug Dosing Est GFR ( Amer) Est GFR (Non-Af Amer) BUN/Creatinine Ratio (10-20) Glucose (70-99) mg/dl POC Glucose 168 H (70-99) mg/dl Lactate 2.9 H* (0.4-2.0) mmol/L Calcium (8.5-10.1) mg/dl Magnesium (1.8-2.4) mg/dl Total Bilirubin (0.2-1) mg/dl Direct Bilirubin (0-0.2) mg/dl AST (15-37) U/L ALT (12-78) U/L Alkaline Phosphatase (45-117) U/L Troponin I (0-0.045) ng/ml Total Protein (6.4-8.2) gm/dl Albumin (3.4-5.0) gm/dl Lipase (73-393) U/L Procalcitonin (0-0.5) ng/ml Urine Color Urine Appearance (Clear) Urine pH (4.5-7.5) Ur Specific [place] (1.000-1.030) Urine Protein (Negative) Urine Glucose (UA) (Negative) Urine Ketones (Negative) Urine Blood (Negative) Urine Nitrite (Negative) Urine Bilirubin (Negative) Urine Urobilinogen (Negative) Ur Leukocyte Esterase (Negative) Urine WBC (Auto) (0-5) /hpf Urine RBC (Auto) (0-4) /hpf U Hyaline Cast (Auto) (0-5) /lpf U Epithel Cells (Auto) (0-5) /lpf Urine Bacteria (Auto) (Negative) Urine Yeast Welsh 0.9 (0.6-1.2) mmol/L COVID-19 Eval Order SARS-CoV-2 (PCR) (Negative) Influenza Type A (PCR) (Neg) Influenza Type B (PCR) (Neg) RSV (RT-PCR) (Neg) 09/30/20 09/30/20 09/30/20 Range/Units 05:00 05:00 05:00 WBC 15.69 H (4.8-10.8) K/uL RBC 5.01 (4.7-6.1) M/uL Hgb 15.5 (14.0-18.0) g/dL Hct 45.1 (42-52) % MCV 90.0 (80-100) fL MCH 30.9 (25-34) pg MCHC 34.4 (32-36) g/dL RDW Std Deviation 46.1 (36.4-46.3) fL RDW Coeff of Machelle 13.9 (11.5-14.5) % Plt Count 175 (130-400) K/uL MPV 9.6 (7.4-10.4) fL Immature Gran % (Auto) 0.3 % Neut % (Auto) 88.6 % Lymph % (Auto) 6.9 % Coffee % (Auto) 4.1 % Eos % (Auto) 0.0 % Baso % (Auto) 0.1 % Neut # (Auto) 13.91 H (1.4-6.5) K/uL Lymph # (Auto) 1.08 L (1.2-3.4) K/uL Coffee # (Auto) 0.65 H (0.11-0.59) K/uL Eos # (Auto) 0.00 (0-0.5) K/uL Baso # (Auto) 0.01 (0-0.2) K/uL Immature Gran # (Auto) 0.04 H (0.00-0.02) K/uL PT 11.1 (9.0-12.0) Seconds INR 1.1 (0.9-1.1) Sodium 133 L (136-145) mmol/L Potassium 4.0 (3.5-5.1) mmol/L Chloride 101 (98-107) mmol/L Carbon Dioxide 23 (21-32) mmol/L Anion Gap 9.0 (3-11) BUN 17 (7-18) mg/dl Creatinine 1.29 (0.6-1.4) mg/dl Est Cr Clr Drug Dosing Not Reportable Est GFR ( Amer) 65.1 Est GFR (Non-Af Amer) 56.2 BUN/Creatinine Ratio 13.4 (10-20) Glucose 202 H (70-99) mg/dl POC Glucose (70-99) mg/dl Lactate (0.4-2.0) mmol/L Calcium 9.3 (8.5-10.1) mg/dl Magnesium 1.7 L (1.8-2.4) mg/dl Total Bilirubin 1.3 H (0.2-1) mg/dl Direct Bilirubin 0.4 H (0-0.2) mg/dl AST 14 L (15-37) U/L ALT 39 (12-78) U/L Alkaline Phosphatase 83 (45-117) U/L Troponin I < 0.015 (0-0.045) ng/ml Total Protein 7.8 (6.4-8.2) gm/dl Albumin 4.0 (3.4-5.0) gm/dl Lipase 131 (73-393) U/L Procalcitonin (0-0.5) ng/ml Urine Color Urine Appearance (Clear) Urine pH (4.5-7.5) Ur Specific [place] (1.000-1.030) Urine Protein (Negative) Urine Glucose (UA) (Negative) Urine Ketones (Negative) Urine Blood (Negative) Urine Nitrite (Negative) Urine Bilirubin (Negative) Urine Urobilinogen (Negative) Ur Leukocyte Esterase (Negative) Urine WBC (Auto) (0-5) /hpf Urine RBC (Auto) (0-4) /hpf U Hyaline Cast (Auto) (0-5) /lpf U Epithel Cells (Auto) (0-5) /lpf Urine Bacteria (Auto) (Negative) Urine Yeast Welsh (0.6-1.2) mmol/L COVID-19 Eval Order SARS-CoV-2 (PCR) (Negative) Influenza Type A (PCR) (Neg) Influenza Type B (PCR) (Neg) RSV (RT-PCR) (Neg) 09/30/20 09/30/20 09/30/20 Range/Units 05:00 05:10 05:10 WBC (4.8-10.8) K/uL RBC (4.7-6.1) M/uL Hgb (14.0-18.0) g/dL Hct (42-52) % MCV (80-100) fL MCH (25-34) pg MCHC (32-36) g/dL RDW Std Deviation (36.4-46.3) fL RDW Coeff of Machelle (11.5-14.5) % Plt Count (130-400) K/uL MPV (7.4-10.4) fL Immature Gran % (Auto) % Neut % (Auto) % Lymph % (Auto) % Coffee % (Auto) % Eos % (Auto) % Baso % (Auto) % Neut # (Auto) (1.4-6.5) K/uL Lymph # (Auto) (1.2-3.4) K/uL Coffee # (Auto) (0.11-0.59) K/uL Eos # (Auto) (0-0.5) K/uL Baso # (Auto) (0-0.2) K/uL Immature Gran # (Auto) (0.00-0.02) K/uL PT (9.0-12.0) Seconds INR (0.9-1.1) Sodium (136-145) mmol/L Potassium (3.5-5.1) mmol/L Chloride (98-107) mmol/L Carbon Dioxide (21-32) mmol/L Anion Gap (3-11) BUN (7-18) mg/dl Creatinine (0.6-1.4) mg/dl Est Cr Clr Drug Dosing Est GFR ( Amer) Est GFR (Non-Af Amer) BUN/Creatinine Ratio (10-20) Glucose (70-99) mg/dl POC Glucose (70-99) mg/dl Lactate (0.4-2.0) mmol/L Calcium (8.5-10.1) mg/dl Magnesium (1.8-2.4) mg/dl Total Bilirubin (0.2-1) mg/dl Direct Bilirubin (0-0.2) mg/dl AST (15-37) U/L ALT (12-78) U/L Alkaline Phosphatase (45-117) U/L Troponin I (0-0.045) ng/ml Total Protein (6.4-8.2) gm/dl Albumin (3.4-5.0) gm/dl Lipase (73-393) U/L Procalcitonin 2.70 H (0-0.5) ng/ml Urine Color Urine Appearance (Clear) Urine pH (4.5-7.5) Ur Specific [place] (1.000-1.030) Urine Protein (Negative) Urine Glucose (UA) (Negative) Urine Ketones (Negative) Urine Blood (Negative) Urine Nitrite (Negative) Urine Bilirubin (Negative) Urine Urobilinogen (Negative) Ur Leukocyte Esterase (Negative) Urine WBC (Auto) (0-5) /hpf Urine RBC (Auto) (0-4) /hpf U Hyaline Cast (Auto) (0-5) /lpf U Epithel Cells (Auto) (0-5) /lpf Urine Bacteria (Auto) (Negative) Urine Yeast Welsh (0.6-1.2) mmol/L COVID-19 Eval Order CovFluRsv at [facility] SARS-CoV-2 (PCR) NEGATIVE (Negative) Influenza Type A (PCR) Negative (Neg) Influenza Type B (PCR) Negative (Neg) RSV (RT-PCR) Negative (Neg) 09/30/20 Range/Units 05:17 WBC (4.8-10.8) K/uL RBC (4.7-6.1) M/uL Hgb (14.0-18.0) g/dL Hct (42-52) % MCV (80-100) fL MCH (25-34) pg MCHC (32-36) g/dL RDW Std Deviation (36.4-46.3) fL RDW Coeff of Machelle (11.5-14.5) % Plt Count (130-400) K/uL MPV (7.4-10.4) fL Immature Gran % (Auto) % Neut % (Auto) % Lymph % (Auto) % Coffee % (Auto) % Eos % (Auto) % Baso % (Auto) % Neut # (Auto) (1.4-6.5) K/uL Lymph # (Auto) (1.2-3.4) K/uL Coffee # (Auto) (0.11-0.59) K/uL Eos # (Auto) (0-0.5) K/uL Baso # (Auto) (0-0.2) K/uL Immature Gran # (Auto) (0.00-0.02) K/uL PT (9.0-12.0) Seconds INR (0.9-1.1) Sodium (136-145) mmol/L Potassium (3.5-5.1) mmol/L Chloride (98-107) mmol/L Carbon Dioxide (21-32) mmol/L Anion Gap (3-11) BUN (7-18) mg/dl Creatinine (0.6-1.4) mg/dl Est Cr Clr Drug Dosing Est GFR ( Amer) Est GFR (Non-Af Amer) BUN/Creatinine Ratio (10-20) Glucose (70-99) mg/dl POC Glucose (70-99) mg/dl Lactate (0.4-2.0) mmol/L Calcium (8.5-10.1) mg/dl Magnesium (1.8-2.4) mg/dl Total Bilirubin (0.2-1) mg/dl Direct Bilirubin (0-0.2) mg/dl AST (15-37) U/L ALT (12-78) U/L Alkaline Phosphatase (45-117) U/L Troponin I (0-0.045) ng/ml Total Protein (6.4-8.2) gm/dl Albumin (3.4-5.0) gm/dl Lipase (73-393) U/L Procalcitonin (0-0.5) ng/ml Urine Color Yellow Urine Appearance Cloudy A (Clear) Urine pH 6.5 (4.5-7.5) Ur Specific [place] 1.018 (1.000-1.030) Urine Protein 2+ H (Negative) Urine Glucose (UA) Negative (Negative) Urine Ketones 3+ H (Negative) Urine Blood 3+ H (Negative) Urine Nitrite Negative (Negative) Urine Bilirubin Negative (Negative) Urine Urobilinogen Negative (Negative) Ur Leukocyte Esterase 3+ H (Negative) Urine WBC (Auto) >30 H (0-5) /hpf Urine RBC (Auto) >30 H (0-4) /hpf U Hyaline Cast (Auto) 0 (0-5) /lpf U Epithel Cells (Auto) 0-5 (0-5) /lpf Urine Bacteria (Auto) 4+ H (Negative) Urine Yeast Not Reportable Welsh (0.6-1.2) mmol/L COVID-19 Eval Order SARS-CoV-2 (PCR) (Negative) Influenza Type A (PCR) (Neg) Influenza Type B (PCR) (Neg) RSV (RT-PCR) (Neg) Administered Medications Vancomycin HCl 1,750 mg/ (Sodium Chloride) 535 mls @ 200 mls/hr IV NOW ONE Stop: 09/30/20 08:20 Last Admin: 09/30/20 06:15 Dose: 200 mls/hr Documented by: [id number] Discontinued Medications Sodium Chloride (Nss 1000ml) 1,000 mls @ 999 mls/hr IV .Q1H1M ONE Stop: 09/30/20 05:59 Last Infusion: 09/30/20 06:18 Dose: 0 mls/hr Documented by: [id number] Admin: 09/30/20 05:17 Dose: 999 mls/hr Documented by: [id number] Sodium Chloride (Nss 1000ml) 1,000 mls @ 999 mls/hr IV .Q1H1M ONE Stop: 09/30/20 05:59 Last Infusion: 09/30/20 06:18 Dose: 0 mls/hr Documented by: [id number] Admin: 09/30/20 05:17 Dose: 999 mls/hr Documented by: [id number] Acetaminophen (Ofirmev) 1,000 mg in 100 mls @ 400 mls/hr IV NOW STA Stop: 09/30/20 05:13 Last Infusion: 09/30/20 05:31 Dose: 0 mls/hr Documented by: [id number] Admin: 09/30/20 05:16 Dose: 400 mls/hr Documented by: [id number] Cefepime HCl (Maxipime) 2,000 mg in 20 mls @ 5 mls/min IV NOW STA Stop: 09/30/20 05:43 Last Admin: 09/30/20 06:15 Dose: 5 mls/min Documented by: [id number] Sodium Chloride (Nss 1000ml) 1,000 mls @ 999 mls/hr IV .Q1H1M ONE Stop: 09/30/20 06:40 Last Admin: 09/30/20 06:15 Dose: 999 mls/hr Documented by: [id number] Discharge Plan Visit Data Chief Complaint: Weakness Stated Complaint: WEAKNESS ED Provider: Mahamed Acosta Discharge Problem: Sepsis, Acute UTI (urinary tract infection), Lactic acidosis Forms Stand Alone Forms: [facility] [place] 27 bards Prescriptions Prescriptions: No Action ipratropium bromide 0.03 % spray,non-aerosol 2 spray INTNAS TID Qty: 30 RF: 5 insulin glargine 100 unit/mL (3 mL) insulin pen 48 unit subcut DAILY Qty: 3 RF: 5 metformin 1,000 mg tablet 1,000 mg PO BID Qty: 180 RF: 1 lisinopril 10 mg tablet 10 mg PO DAILY Qty: 90 RF: 1 Victoza 3-Cole 0.6 mg/0.1 mL (18 mg/3 mL) pen injector See Rx Instructions .ROUTE .COMPLEX Qty: 9 RF: 1 (DME) lancets [OneTouch Delica Lancets] 30 gauge misc See Dose Instructions .ROUTE .MEDSUPPLY Qty: 25 RF: 0 multivitamin [Daily Multi-Vitamin] tablet 1 tab PO DAILY RF: 0 aspirin 325 mg tablet,delayed release (DR/EC) 325 mg PO BID RF: 0 omega-3 acid ethyl esters 1 gram capsule 1 cap PO BID RF: 0 trazodone 50 mg tablet 75 mg PO HS RF: 0 sildenafil 50 mg tablet 50 mg PO DAILY PRN (Reason: sexual activity) Qty: 30 RF: 2 (DME) pen needle, diabetic [Lite Touch Insulin Pen Gur[place]] 31 gauge x 5/16" needle See Dose Instructions .ROUTE .MEDSUPPLY Qty: 30 RF: 6 (DME) OneTouch Verio test strips Strip See Dose Instructions .ROUTE .MEDSUPPLY Qty: 10 RF: 3 allopurinol 100 mg tablet 100 mg PO DAILY Qty: 90 RF: 1 atenolol-chlorthalidone 50-25 mg tablet 1 tab PO DAILY Qty: 90 RF: 1 atorvastatin 10 mg tablet 10 mg PO DAILY Qty: 90 RF: 1 (DME) lancets [OneTouch Delica Lancets] 33 gauge misc See Dose Instructions .ROUTE .MEDSUPPLY Qty: 100 RF: 3 lithium carbonate 300 mg capsule See Rx Instructions .ROUTE .COMPLEX RF: 0 clonazepam 1 mg tablet 1.5 mg PO HS PRN (Reason: Sleep) RF: 0 Discharge Problem: Sepsis Qualifiers: Sepsis type: sepsis due to unspecified organism Sepsis acute organ dysfunction status: unspecified Qualified Code(s): A41.9 - Sepsis, unspecified organism
[2020-09-30 05:18] LABS: Basophils # (auto) 0.01 K/uL (0-0.2); Basophils % (auto) 0.1 %; Hematocrit (blood only) 45.1 % (42-52); Hemoglobin 15.5 g/dL (14.0-18.0); Immature Granulocytes # (auto) 0.04 K/uL (0.00-0.02); Immature Granulocytes % (auto) 0.3 %; Lymphocytes # (auto) 1.08 K/uL (1.2-3.4); Lymphocytes % (auto) 6.9 %; Mean Corpuscular Hemoglobin 30.9 pg (25-34); Mean Corpuscular Hgb Conc 34.4 g/dL (32-36); Mean Platelet Volume 9.6 fL (7.4-10.4); Monocytes # (auto) 0.65 K/uL (0.11-0.59); Monocytes % (auto) 4.1 %; Neutrophils # (auto) 13.91 K/uL (1.4-6.5); Neutrophils % (auto) 88.6 %; Platelet Count 175 K/uL (130-400); RDW Coefficient of Variation 13.9 % (11.5-14.5); RDW Standard Deviation 46.1 fL (36.4-46.3); Red Blood Count 5.01 M/uL (4.7-6.1); White Blood Count 15.69 K/uL (4.8-10.8)
[2020-09-30 05:31] LABS: INR 1.1 (0.9-1.1); Prothrombin Time 11.1 Seconds (9.0-12.0)
[2020-09-30 05:36] LABS: Alanine Aminotransferase 39 U/L (12-78); Aspartate Aminotransferase 14 U/L (15-37); BUN Creatinine Ratio 13.4 (10-20); Bilirubin Direct 0.4 mg/dl (0-0.2); Blood Urea Nitrogen 17 mg/dl (7-18); Calcium 9.3 mg/dl (8.5-10.1); Carbon Dioxide 23 mmol/L (21-32); Chloride 101 mmol/L (98-107); Est GFR (African American) 65.1; Est GFR (Non-African American) 56.2; Glucose 202 mg/dl (70-99); Lipase 131 U/L (73-393); Magnesium 1.7 mg/dl (1.8-2.4); Sodium 133 mmol/L (136-145)
[2020-09-30] MEDS ORDERED: VANCOMYCIN HCL 1,750 MG in SODIUM CHLORIDE 0.9% 500 ML IV ONE (05:40)
[2020-09-30] MEDS ORDERED: CEFEPIME 2,000 MG/20 ML VIAL IV STA (05:40)
[2020-09-30] MEDS ORDERED: VANCOMYCIN HCL 1,600 MG in SODIUM CHLORIDE 0.9% 500 ML IV ONE (05:40)
[2020-09-30] MEDS ORDERED: VANCOMYCIN CONSULT ACTIVE PRN (05:40)
[2020-09-30 05:41] LABS: Alkaline Phosphatase 83 U/L (45-117); Bilirubin,Total 1.3 mg/dl (0.2-1); Total Protein 7.8 gm/dl (6.4-8.2); Troponin I < 0.015 ng/ml (0-0.045)
[2020-09-30 05:46] LABS: Appearance Urine Cloudy (Clear); Bacteria Urine Automated 4+ (Negative); Bilirubin Urine Negative (Negative); Blood Urine 3+ (Negative); Cast Urine Automated 0 /lpf (0-5); Color Urine Yellow; Epithelial Cell Urine Auto 0-5 /lpf (0-5); Glucose Urine UA Negative (Negative); Ketones Urine 3+ (Negative); Leukocyte Esterase Urine 3+ (Negative); Nitrite Urine Negative (Negative); Protein Urine 2+ (Negative); RBC Urine Automated >30 /hpf (0-4); Specific Gravity Urine 1.018 (1.000-1.030); Urobilinogen Urine Negative (Negative); WBC Urine Automated >30 /hpf (0-5); pH Urine 6.5 (4.5-7.5)
[2020-09-30 06:12] LABS: Influenza A virus by PCR Negative (Neg); Influenza B virus by PCR Negative (Neg); RSV by PCR Negative (Neg); SARS CoV2 RNA(COVID-19) InHosp NEGATIVE (Negative)
--- NOTE | 2020-09-30 06:20 | XRay Report ---
XR chest 1V portable CLINICAL HISTORY: sepsis COMPARISON STUDY: Chest radiograph October 07, 2017. FINDINGS: Lung volumes are normal. Lungs are clear. There is no pneumothorax or pleural effusion. Car diac size is normal. Mediastinal contours are normal. There is no evidence for pulmonary edema. Incid ental note is made of postoperative findings within the cervical spine as well as old left clavicular fracture. IMPRESSION: No acute cardiopulmonary findings. ACT 112: Negative or not required by law. Electronically signed by: Demarcus Donis M.D. 09/30/2020 6:18 AM
--- NOTE | 2020-09-30 07:25 | History & Physical Report ---
Date of Service September 30, 2020 Assessment & Plan (1) Acute UTI (urinary tract infection): Urine and blood cxs both obtained in the ED prior to abx. - Follow urine and blood cx - Ceftriaxone - Supportive care (2) Sepsis: Due to UTI as evidenced by lactic acidosis, leukocytosis, and tachycardia. - Resolving with IV fluids and abx (3) Hypertension: BP only 110/55 in the ED where usually 135/70 in prior measurements. - Hold HTN meds for now; can restart one at a time as needed (4) Diabetes mellitus: Prior A1c was 6.0% in 07/2020. - Hold metformin & liraglutide - Lowered long-acting to 40 units (from home 48 units) for hospital diet and lower PO intake while sick. - Sliding scale insulin (5) Hyperlipidemia: - Hold omega-3 supplement as non-formulary - Can restart if family brings him in (6) Depression: Per his , this is why he takes lithium. Li level was 0.9 on admission. - Continue lithium at home regimen (7) Sleep disturbances: - Continue home clonazepam HS PRN (8) DVT prophylaxis: Heparin 5,000 units SQ Q12h History of Present Illness Primary Care Provider: Laureen Anton MD 70yo M w/ hx of DM who presents with UTI and sepsis. He was in his normal state of health until about 11am on Tuesday. He noted some fevers and chills. He has been having some from subjective fevers since his second Covid vaccine, but this seems to have gotten worse since Tuesday. He also became confused. His also states that he had reported dysuria. She came home, and he had taken some Tylenol, but still had a fever of 101. He felt very weak as well. Allergies Allergy/AdvReac Type Severity Reaction Status Date / Time hydromorphone Allergy Unknown PT. Verified 05/30/20 12:53 UNAWARE OF BEING ALLERGIC TO THIS MEDICATION Penicillins Allergy Unknown RASH Verified 05/30/20 12:53 amoxicillin Allergy Verified 05/30/20 12:53 oxycodone Allergy Verified 05/30/20 12:53 Home Medications Medication Instructions Recorded Confirmed Type lancets 30 gauge #25 ea 04/02/19 05/30/20 History multivitamin 1 tab PO DAILY 04/02/19 09/30/20 History aspirin 325 mg tablet,delayed 325 mg PO BID tab 04/03/19 09/30/20 History release omega-3 acid ethyl esters 1 gram 1 cap PO BID cap 04/03/19 09/30/20 History capsule trazodone 50 mg tablet 75 mg PO HS tab 04/04/19 09/30/20 History allopurinol 100 mg tablet 100 mg PO DAILY #90 tab 12/04/19 09/30/20 Rx atenolol 50 mg-chlorthalidone 25 1 tab PO DAILY #90 tab 12/04/19 09/30/20 Rx mg tablet atorvastatin 10 mg tablet 10 mg PO DAILY #90 tab 12/04/19 09/30/20 Rx blood sugar diagnostic #10 ea 12/04/19 05/30/20 Rx lancets 33 gauge #100 ea 12/04/19 05/30/20 Rx ipratropium bromide 21 mcg (0.03 2 spray INTNAS TID #30 ml 02/26/20 09/30/20 Rx %) nasal spray insulin glargine 100 unit/mL (3 48 unit SUBCUT DAILY #3 ml 02/28/20 09/30/20 Rx mL) subcutaneous pen metformin 1,000 mg tablet 1,000 mg PO BID #180 tab 03/20/20 09/30/20 Rx sildenafil 50 mg tablet 50 mg PO DAILY PRN #30 tab 04/18/20 09/30/20 Rx lisinopril 10 mg tablet 10 mg PO DAILY #90 tab 06/26/20 09/30/20 Rx pen needle, diabetic 31 gauge x #30 ea 07/30/20 07/30/20 Rx 5/16" liraglutide 0.6 mg/0.1 mL (18 mg/3 See Rx Instructions .ROUTE 09/18/20 09/30/20 Rx mL) subcutaneous pen injector .COMPLEX #9 syringe clonazepam 1.5 mg PO HS PRN 09/30/20 09/30/20 History lithium carbonate See Rx Instructions .ROUTE .COMPLEX 09/30/20 09/30/20 History Past Med/Surg History Medical History (Updated 09/30/20 @ 14:20 by Evgeny Vick MD) DDD (degenerative disc disease), cervical (06/05/13) Diabetes mellitus Hyperlipidemia Hypertension Stenosis of cervical spine (06/05/13) Surgical History Hx of neck surgery Family History Other Breast cancer Colorectal cancer Denies family history of Ovarian cancer Prostate cancer Myocardial infarction Social History Smoking Status: Never smoker Hx Alcohol Use: No Hx Substance Use: No Preferred Language: Armenian Communication Ability: Effective 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: No Beliefs That Will Affect Care: None marital status: Current Living Situation: Spouse current occupational status: employed Feels Safe at Home: Yes Safety Concerns: Feels Safe At This Time caffeine: No Dental Care, Regularly: Yes Physical Activity Frequency: 5-6 Times per Week Seatbelt Use: always Sunscreen Use: No Review of Systems Review of Systems: All systems reviewed & are unremarkable except as noted in HPI & below Physical Exam Constitutional: WD/WN, vitals as above Eyes: EOM intact bilaterally; no conjunctival abnormality ENMT: external ear and nose normal, oropharynx normal Neck: trachea midline, no thyromegaly normal visual inspection Respiratory: normal respiratory effort, lungs clear to auscultation no respiratory distress Cardiovascular: RRR, no murmur, no edema Gastrointestinal (Abdomen): Inspection/Auscultation: abdomen normal to inspection; abdomen not distended Musculoskeletal: no cyanosis or clubbing, extremities motor strength 5/5 Skin: no rashes, warm and dry Neurologic: moves all extremities and awake Psychiatric: Orientation: alert, oriented to person and cooperative Results & Data Results & Data ([facility]) Vital Signs (Past 12 Hours) Vital Signs Temp Pulse Resp BP Pulse Ox 09/30/20 06:45 108 H 24 107/54 L 94 09/30/20 06:30 111 H 27 H 125/67 95 09/30/20 06:15 112 H 24 134/65 95 09/30/20 06:00 113 H 25 H 122/61 92 09/30/20 05:45 117 H 24 136/70 90 09/30/20 05:30 118 H 15 139/68 99 09/30/20 05:27 117 H 24 137/67 93 09/30/20 05:20 123 H 22 178/141 H 96 09/30/20 04:46 37.4 C 137 H 22 157/80 H 99 Code Status & VTE Plan VTE Prophylaxis Plan VTE Prophylaxis will be ordered: Yes PG Care Time/CCT Total # of Minutes Spent Total Time Spent with Patient: Total time spent is greater than 50% in coordination of care (as documented) at patient's floor/unit and/or counseling patient: Coding Level of Care Code 48844 Initial Inpt Care Lvl 3 Diagnoses Acute UTI (urinary tract infection) N39.0 Sepsis A41.9 Sepsis acute organ dysfunction status: unspecified Sepsis type: sepsis due to unspecified organism Hypertension I10 Diabetes mellitus E11.9 Hyperlipidemia E78.5 Depression F32.9 Sleep disturbances G47.9 DVT prophylaxis Z29.9 (1) Sepsis Sepsis acute organ dysfunction status: unspecified Sepsis type: sepsis due to unspecified organism Qualified Code(s): A41.9 - Sepsis, unspecified organism
[2020-09-30] MEDS ORDERED: ACETAMINOPHEN 325 MG TAB PO PRN (09:30)
[2020-09-30] MEDS ORDERED: DEXTROSE 50% 50 ML SYRINGE IV PRN (09:30)
[2020-09-30] MEDS ORDERED: clonazePAM 0.5 MG TAB PO PRN (09:30)
[2020-09-30] MEDS ORDERED: GLUCOSE 10 TABS/TUBE PO PRN (09:30)
[2020-09-30] MEDS ORDERED: GLUCAGON FOR INJ 1 MG VIAL SQ PRN (09:30)
[2020-09-30] MEDS ORDERED: CARBOHYDRATES FOR HYPOGLYCEMIA PO PRN (09:30)
[2020-09-30] MEDS ORDERED: GLUCOSE 40% GEL 15 GM TUBE PO PRN (09:30)
[2020-09-30] MEDS ORDERED: ONDANSETRON INJ 2 MG/ML 2 ML VIAL IV PRN (09:30)
[2020-09-30] MEDS: INSULIN ASPART 100 UNITS/ML 3 ML PEN SC SCH ×4 (10:14→21:39)
[2020-09-30] MEDS: HEPARIN SOD 5,000 UNIT/0.5 ML VIAL SQ SCH ×2 (10:48→20:17)
[2020-09-30] MEDS: INSULIN GLARGINE SOLOSTAR 100 UNITS/ML 3 ML PEN SQ SCH (10:48)
[2020-09-30] MEDS: LITHIUM CARBONATE 300 MG TAB PO SCH ×2 (10:48→20:17)
[2020-09-30] MEDS: allopurinoL 100 MG TAB PO SCH (10:48)
[2020-09-30] MEDS: ATORVASTATIN 10 MG TAB PO SCH (10:49)
[2020-09-30] MEDS: cefTRIAXone SODIUM 2,000 MG in DEXTROSE 5% 50 ML IV SCH (12:11)
--- NOTE | 2020-09-30 14:33 | Electrocardiogram Report ---
Test Reason : Blood Pressure : / mmHG Vent. Rate : 131 BPM Atrial Rate : 131 BPM P-R Int : 160 ms QRS Dur : 090 ms QT Int : 290 ms P-R-T Axes : 050 005 063 degrees QTc Int : 428 ms Sinus tachycardia Possible Left atrial enlargement Borderline ECG When compared with ECG of 09-AUG-2017 14:29, No significant change was found Confirmed by Kahlil Jones ([id number]) on 09/30/2020 2:33:02 PM Referred By: REFERRED SELF Confirmed By:Patrick Jones
[2020-09-30] MEDS: traZODone HCL 50 MG TAB PO SCH (20:16)
[2020-10-01 07:02] LABS: Mean Corpuscular Volume 88.5 fL (80-100); Mean Platelet Volume 9.3 fL (7.4-10.4); Platelet Count 136 K/uL (130-400); RDW Coefficient of Variation 13.8 % (11.5-14.5); RDW Standard Deviation 45.1 fL (36.4-46.3); Red Blood Count 4.52 M/uL (4.7-6.1); White Blood Count 13.42 K/uL (4.8-10.8)
[2020-10-01 07:42] LABS: Calcium 8.9 mg/dl (8.5-10.1); Creatinine Clr Calc Pharmacy 92.6 ml/min; Est GFR (African American) 83.5; Est GFR (Non-African American) 72.1; Magnesium 1.9 mg/dl (1.8-2.4); Potassium 3.4 mmol/L (3.5-5.1)
[2020-10-01] MEDS: ATORVASTATIN 10 MG TAB PO SCH (08:19)
[2020-10-01] MEDS: LITHIUM CARBONATE 300 MG TAB PO SCH ×2 (08:19→20:34)
[2020-10-01] MEDS: allopurinoL 100 MG TAB PO SCH (08:19)
[2020-10-01] MEDS: INSULIN ASPART 100 UNITS/ML 3 ML PEN SC SCH ×4 (08:20→20:35)
[2020-10-01] MEDS: INSULIN GLARGINE SOLOSTAR 100 UNITS/ML 3 ML PEN SQ SCH (08:20)
[2020-10-01] MEDS: HEPARIN SOD 5,000 UNIT/0.5 ML VIAL SQ SCH ×2 (08:20→20:34)
[2020-10-01] MEDS: cefTRIAXone SODIUM 2,000 MG in DEXTROSE 5% 50 ML IV SCH (12:03)
--- NOTE | 2020-10-01 12:09 | Hospitalist Progress Note ---
Date of Service October 01, 2020 Assessment & Plan (1) Acute UTI (urinary tract infection): Urine and blood cxs both obtained in the ED prior to abx. - Urine and blood cx growing Gram(-) bacilli. Will watch for species and sensitivities. - Continue ceftriaxone - Supportive care (2) Sepsis: Due to UTI as evidenced by lactic acidosis, leukocytosis, and tachycardia. - Resolved with IV fluids and abx (3) Hypertension: BP only 145/85 in the ED where usually 135/70 in prior measurements. - Will restart home beta-raya today - Hold rest of HTN meds for now; can restart one at a time as needed (4) Diabetes mellitus: Prior A1c was 6.0% in 07/2020. - Hold metformin & liraglutide - Lowered long-acting to 40 units (from home 48 units) for hospital diet and lower PO intake while sick. - Sliding scale insulin -> Blood sugars running high in last 24 hours. Will return to home long-acting dose (48 units) and tighten meal-time. (5) Hyperlipidemia: - Hold omega-3 supplement as non-formulary - Can restart if family brings him in (6) Depression: Per his , this is why he takes lithium. Li level was 0.9 on admission. - Continue lithium at home regimen (7) Sleep disturbances: - Continue home clonazepam HS PRN (8) DVT prophylaxis: Heparin 5,000 units SQ Q12h Admission and Anticipated Discharge Date Admission Date: September 30, 2020 Subjective Feeling better today, though he is had lots of urinary urgency and frequency overnight. Reports no fevers/chills, chest pain, shortness of breath, abdominal pain, nausea, or vomiting. Physical Exam Constitutional: WD/WN, vitals as above Eyes: EOM intact bilaterally; no conjunctival abnormality ENMT: external ear and nose normal, oropharynx normal Neck: trachea midline, no thyromegaly normal visual inspection Respiratory: normal respiratory effort, lungs clear to auscultation no respiratory distress Cardiovascular: RRR, no murmur, no edema Gastrointestinal (Abdomen): Inspection/Auscultation: abdomen normal to inspection; abdomen not distended Musculoskeletal: no cyanosis or clubbing, extremities motor strength 5/5 Skin: no rashes, warm and dry Neurologic: moves all extremities and awake Psychiatric: Orientation: alert, oriented to person and cooperative Results & Data Results & Data ([facility]) Vital Signs (Past 12 Hours) Vital Signs Temp Pulse Pulse Resp BP Pulse Ox 10/01/20 11:23 36.9 C 106 H 16 145/82 H 96 10/01/20 07:30 36.9 C 96 H 16 137/74 93 10/01/20 07:03 97 H 10/01/20 03:12 37.1 C 100 H 18 130/74 93 10/01/20 02:57 93 H PG Care Time/CCT Total # of Minutes Spent Total Time Spent with Patient: Total time spent is greater than 50% in coordination of care (as documented) at patient's floor/unit and/or counseling patient: Coding Level of Care Code 39184 Subseq Hosp Care Lvl 2 Diagnoses Acute UTI (urinary tract infection) N39.0 Sepsis A41.9 Sepsis acute organ dysfunction status: unspecified Sepsis type: sepsis due to unspecified organism Hypertension I10 Diabetes mellitus E11.9 Hyperlipidemia E78.5 Depression F32.9 Sleep disturbances G47.9 DVT prophylaxis Z29.9 (1) Sepsis Sepsis acute organ dysfunction status: unspecified Sepsis type: sepsis due to unspecified organism Qualified Code(s): A41.9 - Sepsis, unspecified organism
[2020-10-01] MEDS: ATENOLOL 50 MG TABLET PO SCH (13:28)
--- NOTE | 2020-10-01 17:17 | Ultrasound Report ---
US retro bladder ltd CLINICAL HISTORY: Assess post void bladder volume COMPARISON STUDY: No previous studies for comparison. FINDINGS: Examination was performed immediately following patient voiding. The bladder volume was 540 cc. Neither ureteral jet was visualized. IMPRESSION: Post void bladder volume of 540 cc. ACT 112: Negative or not required by law. Electronically signed by: Riley Faustin M.D. 10/01/2020 5:15 PM
[2020-10-01] MEDS: traZODone HCL 50 MG TAB PO SCH (20:34)
[2020-10-01] MEDS ORDERED: TAMSULOSIN HCL 0.4 MG CAP PO SCH (21:00)
[2020-10-02 07:10] LABS: Hematocrit (blood only) 40.8 % (42-52); Hemoglobin 14.4 g/dL (14.0-18.0); Mean Corpuscular Hgb Conc 35.3 g/dL (32-36); Mean Corpuscular Volume 87.9 fL (80-100); Mean Platelet Volume 9.8 fL (7.4-10.4); Platelet Count 155 K/uL (130-400); RDW Coefficient of Variation 13.7 % (11.5-14.5); RDW Standard Deviation 44.4 fL (36.4-46.3); Red Blood Count 4.64 M/uL (4.7-6.1); White Blood Count 13.88 K/uL (4.8-10.8)
[2020-10-02 07:35] LABS: BUN Creatinine Ratio 11.6 (10-20); Calcium 9.3 mg/dl (8.5-10.1); Creatinine Clr Calc Pharmacy 100.8 ml/min; Est GFR (African American) 91.9; Est GFR (Non-African American) 79.3; Magnesium 2.2 mg/dl (1.8-2.4); Potassium 3.3 mmol/L (3.5-5.1)
[2020-10-02] MEDS: ATORVASTATIN 10 MG TAB PO SCH (07:54)
[2020-10-02] MEDS: LITHIUM CARBONATE 300 MG TAB PO SCH (07:55)
[2020-10-02] MEDS: ATENOLOL 50 MG TABLET PO SCH (07:56)
[2020-10-02] MEDS: allopurinoL 100 MG TAB PO SCH (07:57)
[2020-10-02] MEDS: INSULIN ASPART 100 UNITS/ML 3 ML PEN SC SCH ×2 (07:59→12:22)
[2020-10-02] MEDS: HEPARIN SOD 5,000 UNIT/0.5 ML VIAL SQ SCH (08:04)
[2020-10-02] MEDS ORDERED: INSULIN GLARGINE SOLOSTAR 100 UNITS/ML 3 ML PEN SQ SCH (09:00)
[2020-10-02] MEDS: cefTRIAXone SODIUM 2,000 MG in DEXTROSE 5% 50 ML IV SCH (12:00)
--- NOTE | 2020-10-02 13:04 | Urology Consultation ---
Date of Consultation October 02, 2020 Assessment & Plan (1) Acute UTI (urinary tract infection): (2) Benign localized prostatic hyperplasia with lower urinary tract symptoms (LUTS): BPH with UTI and urinary retention E. coli, good sensitivities to oral antibiotics Continue the catheter for the time being, plan for an outpatient voiding trial next week Continue tamsulosin Antibiotics for 14 days total History of Present Illness Attending Physician: Evgeny Vick MD History of Present Illness 70-year-old gentleman admitted with sepsis, found to have a urinary source Cultures from urine and blood both showing E. coli with relatively broad sensitivities Denies any urinary difficulties prior to admission, occasionally had some weakness of his stream in the morning, occasional need to double void, rare nocturia No prior urinary tract infections Mild ED, never seen by a urologist in the past Gonzalez catheter placed during this hospitalization, he reports that he is tolerating it well and feeling well, will be discharged home later this evening Allergies Allergy/AdvReac Type Severity Reaction Status Date / Time hydromorphone Allergy Unknown PT. Verified 05/30/20 12:53 UNAWARE OF BEING ALLERGIC TO THIS MEDICATION Penicillins Allergy Unknown RASH Verified 05/30/20 12:53 amoxicillin Allergy Verified 05/30/20 12:53 oxycodone Allergy Verified 05/30/20 12:53 Home Medications Medication Instructions Recorded Confirmed Type lancets 30 gauge #25 ea 04/02/19 05/30/20 History multivitamin 1 tab PO DAILY 04/02/19 09/30/20 History aspirin 325 mg tablet,delayed 325 mg PO BID tab 04/03/19 09/30/20 History release omega-3 acid ethyl esters 1 gram 1 cap PO BID cap 04/03/19 09/30/20 History capsule trazodone 50 mg tablet 75 mg PO HS tab 04/04/19 09/30/20 History allopurinol 100 mg tablet 100 mg PO DAILY #90 tab 12/04/19 09/30/20 Rx atenolol 50 mg-chlorthalidone 25 1 tab PO DAILY #90 tab 12/04/19 09/30/20 Rx mg tablet atorvastatin 10 mg tablet 10 mg PO DAILY #90 tab 12/04/19 09/30/20 Rx blood sugar diagnostic #10 ea 12/04/19 05/30/20 Rx lancets 33 gauge #100 ea 12/04/19 05/30/20 Rx ipratropium bromide 21 mcg (0.03 2 spray INTNAS TID #30 ml 02/26/20 09/30/20 Rx %) nasal spray insulin glargine 100 unit/mL (3 48 unit SUBCUT DAILY #3 ml 02/28/20 09/30/20 Rx mL) subcutaneous pen metformin 1,000 mg tablet 1,000 mg PO BID #180 tab 03/20/20 09/30/20 Rx sildenafil 50 mg tablet 50 mg PO DAILY PRN #30 tab 04/18/20 09/30/20 Rx lisinopril 10 mg tablet 10 mg PO DAILY #90 tab 06/26/20 09/30/20 Rx pen needle, diabetic 31 gauge x #30 ea 07/30/20 07/30/20 Rx 5/16" liraglutide 0.6 mg/0.1 mL (18 mg/3 See Rx Instructions .ROUTE 09/18/20 09/30/20 Rx mL) subcutaneous pen injector .COMPLEX #9 syringe clonazepam 1.5 mg PO HS PRN 09/30/20 09/30/20 History lithium carbonate See Rx Instructions .ROUTE .COMPLEX 09/30/20 09/30/20 History Patient History Medical History (Updated 10/02/20 @ 13:03 by Spencer Dodge MD) DDD (degenerative disc disease), cervical (06/05/13) Diabetes mellitus Hyperlipidemia Hypertension Stenosis of cervical spine (06/05/13) Surgical History Hx of neck surgery Family History Other Breast cancer Colorectal cancer Denies family history of Ovarian cancer Prostate cancer Myocardial infarction Social History Smoking Status: Never smoker Hx Alcohol Use: No Hx Substance Use: No Preferred Language: Niuean Communication Ability: Effective Benefit Director Required: No Beliefs That Will Affect Care: None marital status: Current Living Situation: Spouse current occupational status: employed Feels Safe at Home: Yes Safety Concerns: Feels Safe At This Time caffeine: No Dental Care, Regularly: Yes Physical Activity Frequency: 5-6 Times per Week Seatbelt Use: always Sunscreen Use: No Assistive Devices: Denture - Upper Review of Systems Constitutional: no fever, no chills and no fatigue Eyes: no worsening vision Ear, Nose, Mouth, Throat: no facial pain and no pain with swallowing Respiratory: no cough and no dyspnea Cardiovascular: no chest pain and no palpitations Gastrointestinal: no abdominal pain, no nausea and no vomiting Musculoskeletal: no back pain Integumentary: no rash and no urticaria Neurologic: no gait abnormality and no unsteadiness Psychiatric: no behavioral changes and no depression Endocrine: no fatigue Physical Exam Physical Exam: Gonzalez catheter in place, clear urine Constitutional: well developed and well nourished Neck: neck nontender Respiratory: normal respiratory effort; no respiratory distress and does not use accessory muscles Cardiovascular: Rate/Rhythm: regular rate Vessels: radial pulses present Extremities: no edema Gastrointestinal (Abdomen): Inspection/Auscultation: abdomen normal to inspection Percussion/Palpation: abdomen soft; abdomen nontender and no guarding Musculoskeletal: Head/Neck/Chest: normocephalic and head atraumatic Extremities: extremities normal to inspection Skin: no rashes and no lesions Trauma: no evidence of skin trauma Neurologic: awake; not obtunded Speech / Cognition: normal speech Motor/Sensory: no tremor Psychiatric: Orientation: alert and oriented x 3 Genitourinary: no CVA tenderness Lymphatic: no lymphadenopathy Results & Data ([facility]) Vital Signs (Past 12 Hours) Vital Signs Temp Pulse Pulse Resp BP Pulse Ox 10/02/20 11:52 37.1 C 75 18 149/84 H 93 10/02/20 08:00 89 10/02/20 07:58 36.8 C 87 18 145/75 H 95 10/02/20 03:03 36.9 C 80 16 123/69 95 PG Care Time/CCT Total # of Minutes Spent Total Time Spent with Patient: Total time spent is greater than 50% in coordination of care (as documented) at patient's floor/unit and/or counseling patient: Coding Level of Care Code 55231 Inpt Consult Level 3 Diagnoses Acute UTI (urinary tract infection) N39.0 Benign localized prostatic hyperplasia with lower urinary tract symptoms (LUTS) N40.1
--- NOTE | 2020-10-02 15:04 | Discharge Summary ---
Date of Service October 02, 2020 Admission HPI Per Admitting Provider 70yo M w/ hx of DM who presents with UTI and sepsis. He was in his normal state of health until about 11am on Tuesday. He noted some fevers and chills. He has been having some from subjective fevers since his second Covid vaccine, but this seems to have gotten worse since Tuesday. He also became confused. His also states that he had reported dysuria. She came home, and he had taken some Tylenol, but still had a fever of 101. He felt very weak as well. Principal Diagnosis E. coli bacteremia from UTI Urinary retention Discharge Exam Constitutional WD/WN, vitals as above Eyes EOM intact bilaterally; no conjunctival abnormality ENMT external ear and nose normal, oropharynx normal Neck trachea midline, no thyromegaly normal visual inspection Respiratory normal respiratory effort, lungs clear to auscultation no respiratory distress Cardiovascular RRR, no murmur, no edema Gastrointestinal (Abdomen) Inspection/Auscultation: abdomen normal to inspection; abdomen not distended Musculoskeletal no cyanosis or clubbing, extremities motor strength 5/5 Skin no rashes, warm and dry Neurologic moves all extremities and awake Psychiatric Orientation: alert, oriented to person and cooperative Discharge Data Allergies Allergy/AdvReac Type Severity Reaction Status Date / Time hydromorphone Allergy Unknown PT. Verified 05/30/20 12:53 UNAWARE OF BEING ALLERGIC TO THIS MEDICATION Penicillins Allergy Unknown RASH Verified 05/30/20 12:53 amoxicillin Allergy Verified 05/30/20 12:53 oxycodone Allergy Verified 05/30/20 12:53 Consultations 09/30/20 06:22 ED Decision to Admit Stat 10/02/20 07:10 Consult Urology Routine Ordered Studies 10/01/20 16:16 [facility] bladder ltd Urgent Hospital Course (1) Acute UTI (urinary tract infection): Urine and blood cxs both obtained in the ED prior to abx. - Urine and blood cx growing E. coli. Will watch for species and sensitivities. - Continued ceftriaxone - Switched to cefdinir on discharge x 11 more days per urology recommendations. (2) Benign localized prostatic hyperplasia with lower urinary tract symptoms (LUTS): Required Gonzalez catheter on 10/01 with nearly 1L urinary retention. - Seen by urology - Will discharge with Gonzalez in place and follow up in the office. (3) Sepsis: Due to UTI as evidenced by lactic acidosis, leukocytosis, and tachycardia. - Resolved with IV fluids and abx (4) Hypertension: BP only 145/85 in the ED where usually 135/70 in prior measurements. - Restarted home beta-raya in the hospital - Return to normal home regimen on discharge. (5) Diabetes mellitus: Prior A1c was 6.0% in 07/2020. - Held metformin & liraglutide while inpatient -> Return to home meds on discharge. (6) Hyperlipidemia: - Hold omega-3 supplement as non-formulary - Can restart if family brings him in (7) Depression: Per his , this is why he takes lithium. Li level was 0.9 on admission. - Continue lithium at home regimen (8) Sleep disturbances: - Continue home clonazepam HS PRN (9) DVT prophylaxis: Heparin 5,000 units SQ Q12h Total Time Total Time Spent Total Time Spent (In Minutes): 35 Discharge Plan Discharge Items Patient Disposition: Home - Self-Care Reason For Visit: URINARY TRACT INFECTION,SEPSIS Discharge Diagnosis: Urinary tract infection with bacteria in the bloodstream Activity: Resume your previous activity Non-emergency contact: Primary Care Provider Call non-emergency contact if: your symptoms worsen and your temperature is above 101 Follow-up/Referrals: Spencer Dodge MD [Physician] - (Please call the Urology office tomorrow or Tuesday to schedule your follow-up for your prostate enlargement.) Laureen Anton MD [Primary Care Provider] - 10/08/20 9:00 am Diet: Regular Addtl Attending Provider Instructions: Mr. Taylor, You were admitted to the hospital with a urinary tract infection that also allowed bacteria to get into the blood stream. Luckily, this is a fairly weak bacteria, and we were able to get rid of it with antibiotics easily. You will need to be on oral antibiotics for 11 more days. Please follow up with your PCP in a week or so to be sure you are doing well. Please finish the antibiotic even if you are feeling well. You also had some urinary retention which is likely what allowed the bacteria to grow in the bladder. Please follow up in the Urology office in 1-2 weeks to attempt to remove the Ognzalez catheter and discuss the next steps. Take the tamsulosin every evening. It can cause some postural lightheadedness, so please transition from sitting to standing carefully until you see how the medication effects you. Pending Studies at Discharge: No Stand-Alone Forms: My [facility], Smoking Cessation Medications and DC Order Prescriptions: New tamsulosin 0.4 mg Capsule 0.4 mg PO HS Qty: 30 RF: 0 cefdinir 300 mg capsule 300 mg PO BID Qty: 22 RF: 0 Continued ipratropium bromide 0.03 % spray,non-aerosol 2 spray INTNAS TID Qty: 30 RF: 5 insulin glargine 100 unit/mL (3 mL) insulin pen 48 unit subcut DAILY Qty: 3 RF: 5 metformin 1,000 mg tablet 1,000 mg PO BID Qty: 180 RF: 1 lisinopril 10 mg tablet 10 mg PO DAILY Qty: 90 RF: 1 Victoza 3-Cole 0.6 mg/0.1 mL (18 mg/3 mL) pen injector See Rx Instructions .ROUTE .COMPLEX Qty: 9 RF: 1 (DME) lancets [OneTouch Delica Lancets] 30 gauge misc See Dose Instructions .ROUTE .MEDSUPPLY Qty: 25 RF: 0 multivitamin [Daily Multi-Vitamin] tablet 1 tab PO DAILY RF: 0 aspirin 325 mg tablet,delayed release (DR/EC) 325 mg PO BID RF: 0 omega-3 acid ethyl esters 1 gram capsule 1 cap PO BID RF: 0 trazodone 50 mg tablet 75 mg PO HS RF: 0 sildenafil 50 mg tablet 50 mg PO DAILY PRN (Reason: sexual activity) Qty: 30 RF: 2 (DME) pen needle, diabetic [Lite Touch Insulin Pen Bliss] 31 gauge x 5/16" needle See Dose Instructions .ROUTE .MEDSUPPLY Qty: 30 RF: 6 (DME) OneTouch Verio test strips Strip See Dose Instructions .ROUTE .MEDSUPPLY Qty: 10 RF: 3 allopurinol 100 mg tablet 100 mg PO DAILY Qty: 90 RF: 1 atenolol-chlorthalidone 50-25 mg tablet 1 tab PO DAILY Qty: 90 RF: 1 atorvastatin 10 mg tablet 10 mg PO DAILY Qty: 90 RF: 1 (DME) lancets [OneTouch Delica Lancets] 33 gauge misc See Dose Instructions .ROUTE .MEDSUPPLY Qty: 100 RF: 3 lithium carbonate 300 mg capsule See Rx Instructions .ROUTE .COMPLEX RF: 0 clonazepam 1 mg tablet 1.5 mg PO HS PRN (Reason: Sleep) RF: 0 Discharge Orders: Discharge Order (Routine); Ordered 10/02/20 Ordered By: Evgeny Vick Admission Data Admit Date/Time: 09/30/20 07:17 Attending Provider: Evgeny Vick Admit Provider: Evgeny Vick Primary Care Provider: Laureen Anton Other Providers: Fausto Le ; Ab Campbell Other Interventions: Discharge Summary Assessment (RN) Last Done: 10/02/20 14:22 Coding Level of Care Code D/C Day Management >30 mins Diagnoses Acute UTI (urinary tract infection) N39.0 Benign localized prostatic hyperplasia with lower urinary tract symptoms (LUTS) N40.1 Sepsis A41.9 Sepsis acute organ dysfunction status: unspecified Sepsis type: sepsis due to unspecified organism Hypertension I10 Diabetes mellitus E11.9 Hyperlipidemia E78.5 Depression F32.9 Sleep disturbances G47.9 DVT prophylaxis Z29.9
== END 2020-10-02 15:32 | disposition home or self-care (01) | DRG 872 ==
LOC: ED 04:45 → 2N 07:17